=== PATIENT | male | born 1945 | race Caucasian/White ===

== ENCOUNTER → 2017-05-24 | Outpatient (CLI) | payer OTHER ==
[~2017-05-24] MED LIST: BENICAR40 MG PO; COZAAR 25 MG TA25 MG PO; HYDROCHLOROTHIA25 M2 PO; NEXIUM40 MG PO; PREDNISONE 10 M10 MG PO; SIMVASTATIN40 MG PO; STIOLTO RESPIMAT4 GM INH; TENORMIN25 MG PO; TRAZODONE HCL50 MG PO; WELCHOL 625 MG625 M1 PO; XARELTO15 MG PO; XARELTO20 MG PO
== END ==
LOC: M.RAD 11:00
DX: J98.11 Atelectasis (principal); R06.02 Shortness of breath

== ENCOUNTER → 2017-09-07 | Outpatient (CLI) | payer OTHER ==
--- NOTE | 2017-09-13 07:49 | PF ---
[address] [address] PULMONARY FUNCTION REPORT Name: MAJORRAJINDER Natalia Room: [facility] BHAVESH Garcia#: [id number] Admission: 09/07/17 Attend Phys: Huy Cheek, Discharge: Date of : 49 Report #: [id number] THIS REPORT FOR: //name// CC: Huy BALLARD physician/PCP DATE OF SERVICE: 09/07/2017 PFT done on 09/07/2017. REQUESTING PHYSICIAN: Dr. Cheek. A spirometry was done. FEV1 of 2.93, which was 93% of predicted. FVC of 4.77. FEV1/FVC ratio 62%. Mid flows were moderately decreased at 51% of predicted. After inhaled bronchodilator, there was 45% improvement seen at the level of the smaller airways. Lung volumes by plethysmography reveal a normal TLC. Other volumes were normal as well. Diffusion capacity is normal. IMPRESSION: The study reveals evidence of a mild obstructive process. Seen primarily at the level of the small airways. There was improvement in the mid flows following inhaled bronchodilator. <ELECTRONICALLY SIGNED> By: Kala Caruso MD 09/13/17 0749 0907 1442Kala Caruso MD /nt
== END ==
LOC: M.PUL 09:30
DX: J44.9 Chronic obstructive pulmonary disease, unspecified (principal)

== ENCOUNTER 2017-10-29 13:54 | Inpatient (IN) | payer OTHER ==
[~2017-10-29] VITALS: Ht 175.3 cm; Wt 97.5 kg
[2017-10-29 14:04] VITALS: BP 125/69
[2017-10-29 14:41] LABS: ABSOLUTE LYMPHOCYTES 0.8 thou/uL (0.8-5.3); ABSOLUTE MONOCYTES 0.3 thou/uL (0.0-1.2); ABSOLUTE NEUTROPHILS 5.6 thou/uL (1.6-8.1); BASOPHILS 0.3 %; EOSINOPHILS 0.1 %; HEMOGLOBIN 15.7 gm/dL (14.0-18.0); LYMPHOCYTES 11.3 %; MCH 32.4 pg (26.0-34.0); MCHC 34.8 g/dL (28.0-37.0); MCV 93.3 fL (80.0-100.0); MONOCYTES 4.7 %; MPV 8.8 fl. (7.2-11.1); NUCLEATED RBCS 0 /100WBC; PLATELET COUNT* 157 thou/uL (150-400); POLYS 83.6 %; RBC 4.83 mil/uL (4.50-6.00); RDW-CV 13.7 % (10.5-14.5); WBC 6.7 thou/uL (4.0-11.0)
[2017-10-29 14:52] LABS: APTT 26.3 Seconds (25.0-31.3); INR 1.1; PROTIME 10.6 Seconds (9.20-11.50)
[2017-10-29 14:59] LABS: ANION GAP 13 mmol/L (7-16); BUN 34 mg/dL (7-18); CALCIUM 9.2 mg/dL (8.5-10.1); CHLORIDE 101 mmol/L (98-107); CO2 20 mmol/L (21-32); CREATININE 1.2 mg/dL (0.6-1.3); GLUCOSE 184 mg/dL (70-99); POTASSIUM 3.9 mmol/L (3.5-5.1); SODIUM 134 mmol/L (136-145)
[2017-10-29 15:10] LABS: ALBUMIN 3.7 g/dL (3.4-5.0); ALKALINE PHOSPHATASE 79 U/L (46-116); MAGNESIUM 1.8 mg/dL (1.8-2.4); NT-PRO BRAIN NAT PEPTIDE 4192 pg/mL (<300); SGOT 36 U/L (15-37); SGPT 86 U/L (30-65); TOTAL BILIRUBIN 0.6 mg/dL (<0.1-1.0); TOTAL PROTEIN 6.9 g/dL (6.4-8.2); TROPONIN-I LEVEL <0.06 ng/mL (<0.06)
[2017-10-29] MEDS ORDERED: PREDNISONE 10 M10 MG PO (15:12)
[2017-10-29] MEDS ORDERED: SIMVASTATIN40 MG PO (15:13)
[2017-10-29] MEDS ORDERED: TENORMIN25 MG PO (15:13)
[2017-10-29] MEDS ORDERED: HYDROCHLOROTHIA25 M2 PO (15:13)
[2017-10-29] MEDS ORDERED: NEXIUM40 MG PO (15:13)
[2017-10-29] MEDS ORDERED: COZAAR 25 MG TA25 MG PO (15:14)
[2017-10-29] MEDS ORDERED: TRAZODONE HCL50 MG PO (15:14)
[2017-10-29] MEDS ORDERED: STIOLTO RESPIMAT4 GM INH (15:14)
[2017-10-29 16:05] VITALS: BP 115/73
--- NOTE | 2017-10-29 16:16 | NUR ---
ECHOCARDIOLOGY ARRIVED TO THE EMERGENCY DEPARTMENT BEFORE MOVING THE PATIENT TO HIS ROOM #233. PT WILL BE MOVED TO HIS ROOM AFTER THE ECHO IS COMPLETED.
--- NOTE | 2017-10-29 16:40 | NUR ---
UPDATED D/C VITALS: HR:71 BP:92/70 RR:12 PAIN: 0/10 02 SAT:99 ON 2 LITERS NC
[2017-10-29 17:03] VITALS: BP 112/74
[2017-10-29] MEDS ORDERED: BENICAR40 MG PO (17:32)
[2017-10-29] MEDS ORDERED: WELCHOL 625 MG625 M1 PO (17:34)
--- NOTE | 2017-10-29 17:54 | NUR ---
RECEIVED REOPORT AND ASSUMED CARE AT 1650. PT TRANSFERED FROM ER TO RM 233. VSS. CARDIAC MONITORING IN PLACE. PT ORIENTATED TO ROOM, CALL LIGHT. BED IN LOWEST POSITION, CALL LIGHT WITHIN REACH. PT UP AD AUNDREA, ON 2L NC. ASSESSMENT COMPLETED CHARTED. WILL CONTINUE TO MONITOR
--- NOTE | 2017-10-29 18:14 | NUR ---
RECIEVED COMMUNICATION FROM [employer] TECH THAT PT WAS POSITIVE FOR BLOOD CLOTS TO BLE POPITEAL- MESSAGE SENT TO - PT PATRICK ON XARELTO BID- ALL NEEDS MET AT THIS TIME-EARNEST
[2017-10-29 20:30] VITALS: BP 103/71
[2017-10-30] VITALS: BP 104/76
[2017-10-30 04:00] VITALS: BP 92/66
[2017-10-30 08:12] VITALS: BP 123/78
[2017-10-30 08:51] LABS: HEMATOCRIT 45.7 % (42.0-52.0); HEMOGLOBIN 15.5 gm/dL (14.0-18.0)
[2017-10-30 11:51] VITALS: BP 100/68
--- NOTE | 2017-10-30 12:38 | 2DMMODE ---
[place] [address] 2 D/M-MODE ECHOCARDIOGRAM Name: RAJINDER GONSALVES Room: [address] IN [facility]#: [id number] Admission: 10/29/17 Attend Phys: Tee Wesley, Discharge: Date of : 49 Date of Service: 10/30/17 1238 Report #: [id number] THIS REPORT FOR: //name// APPROVED REPORT Study performed: 10/29/2017 16:15:32 EXAM: Comprehensive 2D, Doppler, and color-flow Echocardiogram Patient Location: In-Patient Room #: ER Status: routine BSA: 2.09 HR: 66 bpm BP: 105/74 mmHg Rhythm: NSR Other Information Study Quality: Good Indications Dyspnea 2D Dimensions LVEF(%): 68.63 (>50%) IVSd: 9.53 (7-11mm) LVOT Diam: 20.39 (18-24mm) LVDd: 39.78 mm PWd: 9.94 (7-11mm) Ascending Ao: 38.91 (22-36mm) LVDs: 24.70 (25-40mm) Aortic Root: 38.17 mm Bridges's LVEF: 68.63 % Volumes Left Atrial Volume (Systole) LA ESV Index: 15.90 mL/m2 Aortic Valve AoV Peak Chacorta.: 1.08 m/s AO Peak Gr.: 4.66 mmHg LVOT Max P.30 mmHg AO Mean Gr.: 2.67 mmHg LVOT Mean P.97 mmHg LVOT Max V: 0.76 m/s AO V2 VTI: 15.89 cm LVOT Mean V: 0.45 m/s RAMOS (VTI): 2.96 cm2 LVOT V1 VTI: 14.38 cm Mitral Valve E/A Ratio: 0.67 [place] [address] 2 D/M-MODE ECHOCARDIOGRAM Name: RAJINDER GONSALVES Room: [address] IN [facility].#: [id number] Admission: 10/29/17 Attend Phys: Tee Wesley, Discharge: Date of : 49 Date of Service: 10/30/17 1238 Report #: [id number] MV Decel. Time: 263.14 ms MV E Max Chacorta.: 0.33 m/s MV PHT: 76.31 ms MVA (PHT): 2.88 cm2 TDI E/Lateral E': 3.67 E/Medial E': 8.25 Medial E' Chacorta.: 0.04 m/s Lateral E' Chacorta.: 0.09 m/s Tricuspid Valve TR Peak Gr.: 72.36 mmHg RVSP: 87.00 mmHg Left Ventricle The left ventricle is normal size. Flattened septum consistent with right ventricular volume and pressure overload.Other segments are normal. There is normal left ventricular wall thickness. Left ventricular systolic function is normal. The left ventricular ejection fraction is within the normal range. LVEF is 55%. Grade I - abnormal relaxation pattern. Right Ventricle Right ventricle is dilated. Right ventricular systolic function is severely reduced. Atria The left atrium size is normal. Right atrium is dilated. Aortic Valve The aortic valve is normal in structure. No aortic regurgitation is present. There is no aortic valvular stenosis. Mitral Valve The mitral valve is normal in structure. There is no mitral valve regurgitation noted. No evidence of mitral valve stenosis. Tricuspid Valve The tricuspid valve is normal in structure. Mild tricuspid regurgitation. The RVSP is ____87___ mmHg. Pulmonic Valve The pulmonary valve is normal in structure. Trace pulmonic regurgitation. Great Vessels The aortic root is normal in size. IVC [place] [address] 2 D/M-MODE ECHOCARDIOGRAM Name: RAJINDER GONSALVES Room: [address] IN [facility]#: [id number] Admission: 10/29/17 Attend Phys: Tee Wesley, Discharge: Date of : 49 Date of Service: 10/30/17 1238 Report #: [id number] <50% with inspiration. Pericardium There is no pericardial effusion. <Conclusion> The left ventricle is normal size. LVEF is 55%. Flattened septum consistent with right ventricular volume and pressure overload.Other segments are normal. Right ventricle is dilated. Right ventricular systolic function is severely reduced. Right atrium is dilated. No aortic regurgitation is present. There is no aortic valvular stenosis. No evidence of mitral valve stenosis. There is no mitral valve regurgitation noted. Mild tricuspid regurgitation. The RVSP is ____87___ mmHg. <ELECTRONICALLY SIGNED> By: Andrew Martinez MD, FACC 10/30/17 1238 1238 1238 Andrew Martinez MD, FACC /INF
--- NOTE | 2017-10-30 12:49 | EKG ---
[place] [address] ELECTROCARDIOGRAM REPORT Name: RAJINDER GONSALVES Room: [place] [address] ADM IN [facility]#: [id number] Admission: 10/29/17 Attend Phys: Tee Wesley MD Discharge: Date of : 49 Report #: [id number] THIS REPORT FOR: //name// 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 REED : 1945 Requested By: Elliot Walters Order Number: [id number] MD: Andrew Martinez Measurements Intervals [place] Rate: 64 P: 34 ID: 211 QRS: 176 QRSD: 118 T: -28 QT: 506 QTc: 522 Interpretive Statements Sinus rhythm Nonspecific intraventricular conduction delay Abnormal T, consider ischemia, lateral leads Baseline wander in lead(s) V4 No previous ECG available for comparison Electronically Signed On 10-30-2017 12:49:03 CDT by Andrew Martinez [email or web address] <ELECTRONICALLY SIGNED> By: Andrew Martinez MD, [facility] 10/30/17 1249 1421 1421 Andrew Martinez MD, [facility] /EPI
--- NOTE | 2017-10-30 16:06 | NUR ---
CALLED PT.'S PHARMACY-[facility] IN [facility]-[phone]. COPAY FOR XARELTO 15MG PO BID #60 IS $135.99. SPOKE WITH PT.ABOUT THIS AND ALSO GAVE COUPON FOR ONE 30 DAY SUPPLY AT NO COST THROUGH [employer] ACCOUNT MANAGER. HE SAID THE DIOCESE GIVE THEM A LITTLE EXTRA TOWARDS THEIR DRUG PLAN THEY CAN USE IF NEEDED. HE THINKS IT WILL BE OK. PER PHARMACIST, PT.CAN GO ONLINE AND GET COUPON FOR XARELTO. INFORMED HIM OF THIS. HE IS NORMALLY INDEPENDENT AND ACTIVE. 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 JUST RETIRED A MONTH AGO. PTS IS COERY FARAH DO.
[2017-10-30 16:14] VITALS: BP 106/75
--- NOTE | 2017-10-30 18:20 | NUR ---
ASSUMED CARE OF PT AT 0715. PT CONTINUES TO BE A&O X4 CALM AND COOPERATIVE. HE HAS HAD NO C/O PAIN OR DISCOMFORT. PT VSS ON ROOM AIR AND HE HAS BEEN TRACING SR ON THE MONITOR. PT UP AD AUNDREA AND VOIDING VIA THE TOILET. PT HAS A GOOD APPETITE AND HAS ATRE GREATER THAN 90% OF ALL MEALS TODAY. MEDICATIONS ADMINISTERED PER MAR, AND HOURLY ROUNDING COMPLETED FOR COMFORT AND SAFTEY.
[2017-10-30 20:00] VITALS: BP 106/63
[2017-10-31 00:36] VITALS: BP 90/60
--- NOTE | 2017-10-31 03:07 | NUR ---
ASSUMED PT CARE AT 19:15 REPORT RECEIVED FROM NURSE PT IS ALERT, AWAKE, ORIENTED X 4. NO COMPLAINT OF PAIN. VITAL SIGNS WITHIN NORMAL LIMIT.ASSESSMEMT PERFORMED AT BEDSIDE. REFER TO CHART. SINUS RYTHM ON THE MONITOR. NO MED SCHEDULED. PT WAS SITTING AT BEDSIDE IN RECLYNER CHAIR. NO COMPLAIN OF HEADACHE. CURRENTLY SLEEPING IN BED. WILL CONTINUE TO MONITOR.
--- NOTE | 2017-10-31 03:19 | NUR ---
ASSUMED PT CARE REPORT REECEIVED FROM NURSE. PT IS ALERT AWAKE ORIENTED X4 SITTING IN THE CHAIR NEXT TO BED. HIS VITALS ARE OK. SINUS RYHTM WITH 1ST DEGRRE AV BLOCK ON THE MONITOR. OXYGEN SATURTAION IS 95% ON RA. HIS O2 SAT DROPPED TO TH E80 AT AROUND MIDNIGHT, O2 NC READJUSTED. HE IS CURRENTLY ON 2 L OF O2 NO COMPLAINT OF PAIN. HIS MED WERE GIVEN ORDERED. CURRENTLY SLEEPING IN BED. WILL CONTINUE TO MONITOR.
[2017-10-31 04:01] VITALS: BP 97/67
[2017-10-31 08:00] VITALS: BP 117/76
[2017-10-31] MEDS ORDERED: XARELTO20 MG PO (08:26)
[2017-10-31] MEDS ORDERED: XARELTO15 MG PO (08:27)
[2017-10-31 11:00] VITALS: BP 117/76
--- NOTE | 2017-10-31 13:44 | NUR ---
ASSUMED CARE OF PT AT 0730. PT REMAINED A&O X4 CALMA ND COOPERATIVE. NO C/O PAIN OR DISTRESS. PT EAGAR TO DISCHARGE HOME. PT VSS ON ROOM AIR AND TRACING SR ON THE MONITOR. PT WAS DISCHARGED TO HOME WITH PRESCRIOTPINS AND ALL PERSONAL ITEMS. PT PROVIDED WITH WRITTEN INFORMATION ON NEW MEDICATIONS. PT VERBALIZED UNDERSTANDING OF DC INSTRUCTIONS THAT IN CLUDED MEDICATION MANAGEMENT AND F/U CARE.
--- NOTE | 2017-11-01 10:52 | CON ---
[address] [address] CONSULTATION Name: RAJINDER GONSALVES Room: [address] IN [facility]#: [id number] Admission: 10/29/17 Attend Phys: Tee Wesley MD Discharge: 10/31/17 Date of : 49 Report #: [id number] THIS REPORT FOR: //name// CC: Tee FARAH Physician staff REASON FOR CONSULTATION: Pulmonary embolus. HISTORY OF PRESENT ILLNESS: The patient is a 72-year-old male patient with history of dyspnea. He had been seen in our office 2 times, the last time was 10/28/2017. He has history of smoking, quit in 1998 after a [id number] history of smoking. His PFTs at our office showed moderate obstructive defect. He has been on Stiolto since then. He had increasing shortness of breath for a year now, this has been progressive. At one point, he required prednisone taper. Dr. Cheek ordered CT of the chest for him that was done at [facility] on 10/29/2017 that demonstrated multiple bilateral pulmonary emboli with areas of infiltrate that likely suggest pulmonary infarct. He was sent to the ER and was admitted and started on anticoagulation. In the past, he was unable to tolerate his CPAP. He has history of obstructive sleep apnea, on CPAP therapy, however, and his intolerance to CPAP was recent due to increasing shortness of breath. REVIEW OF SYSTEMS: Negative for lower extremity pain, but he had some swelling of both lower extremities on and off over the course of one year. He had no PNDs, no orthopnea, no headache, no blurring of vision. FAMILY HISTORY: There is no history of thromboembolic disease in the family, but positive for Alzheimer's and CVA. PAST MEDICAL HISTORY: COPD; obstructive sleep apnea, on CPAP; history of osteoarthritis; reflux disease; hyperlipidemia, previous history of alcohol abuse. PAST SURGICAL HISTORY: Left elbow surgery, hernia repair, colonoscopy. SOCIAL HISTORY: Ex-smoker, quit long time ago after a 30-year history of smoking, currently does not drink alcohol. Does not abuse drugs. HOME MEDICATIONS: He is on CPAP. He is on atenolol. He is on Combivent. He is on Stiolto, Benicar PPIs, He was at one point on a prednisone taper. ALLERGIES: TORADOL. PHYSICAL EXAMINATION: VITAL SIGNS: When I saw him, he was on room air with saturation more than 90%, blood pressure 123/78, pulse rate of 69, temperature 36.8. HEAD: Normocephalic[place] [address] CONSULTATION Name: RAJINDER GONSALVES Room: [address] IN [facility]#: [id number] Admission: 10/29/17 Attend Phys: Tee Wesley MD Discharge: 10/31/17 Date of : 49 Report #: [id number] EYES: Pupils reactive to light. Extraocular movement intact, not pale. No jaundice. EARS: External ear looks healthy and normal. ORAL CAVITY: Moist mucous membrane. Mallampati of 2-3. NECK: Supple. No palpable lymph node. No palpable thyroid. Trachea central. CHEST: Actually clear to auscultation. No wheezes, no crackles. No tenderness. HEART: S1, S2. No murmur, no gallop. ABDOMEN: Benign, soft, lax, nontender, positive bowel sounds. No masses felt, no rebound, no rigidity. EXTREMITIES: Lower extremity: No edema, no calf tenderness. SKIN: Normal for age and race, no rash. PSYCHIATRIC: Mood and affect appropriate. Good insight and judgment. NEUROLOGIC: Moving 4 extremities spontaneously. No focal weakness. LYMPHATICS: No palpable lymph nodes. LABORATORY DATA: His white blood count 6.7, with hemoglobin 15.7 and platelets of 157. His creatinine is 1.2, with a sodium of 134, potassium 3.9. INR of 1.1. He had a venous Doppler ultrasound during this hospitalization demonstrated thrombus within the right popliteal vein and left popliteal vein and left peroneal vein. His CT of the chest at [facility] demonstrated bilateral multiple PEs. He had a chest x-ray during this hospitalization showed area of infiltrate/hilar mass on the right side. However, this opacity was seen along the minor fissure on the right lung on the CT scan of the chest. IMPRESSION: 1. Acute hypoxemic respiratory failure. 2. Pulmonary embolus, acute. 3. Acute deep venous thrombosis. 4. Chronic obstructive pulmonary disease. The patient currently is on anticoagulation. Continue to monitor his oxygen and wean his oxygen down. I would recommend anticoagulation for at least 6 months. He needs repeat imaging of the chest with a CT in 3-6 months from now to ensure resolution of the clots at the same time that also would follow the opacity seen in his lung. Continue current treatment for his COPD. Echo is pending. We will follow along with you. Thank you for the consult. <ELECTRONICALLY SIGNED> By: Florinda Tomlin MD 11/01/17 1052 0905 1223Ddeepa Tomlin MD /nt
== END 2017-10-31 11:15 | disposition home or self-care (01) | DRG 175 ==
LOC: M.ERS 13:54 → M.2W 14:48 → M.TBA-ER 14:48 → M.2W 17:03
PROVIDERS: Emergency Medicine Emergency Medical Services; ADMIT Internal Medicine
DX: I26.99 Other pulmonary embolism without acute cor pulmonale (principal); J96.01 Acute respiratory failure with hypoxia; I82.403 Acute embolism and thrombosis of unspecified deep veins of lower extremity, bilateral; D68.59 Other primary thrombophilia; J44.9 Chronic obstructive pulmonary disease, unspecified; G47.33 Obstructive sleep apnea (adult) (pediatric); M19.90 Unspecified osteoarthritis, unspecified site; K21.9 Gastro-esophageal reflux disease without esophagitis; E78.5 Hyperlipidemia, unspecified; I27.20 Pulmonary hypertension, unspecified; I50.810 Right heart failure, unspecified; I10 Essential (primary) hypertension; Z88.6 Allergy status to analgesic agent; Z90.49 Acquired absence of other specified parts of digestive tract; Z79.01 Long term (current) use of anticoagulants; Z87.891 Personal history of nicotine dependence; Z79.1 Long term (current) use of non-steroidal anti-inflammatories (NSAID); Z79.899 Other long term (current) drug therapy; Z82.49 Family history of ischemic heart disease and other diseases of the circulatory system; Z84.89 Family history of other specified conditions; Z82.3 Family history of stroke

== ENCOUNTER 2017-11-03 16:11 | Emergency (ER) | payer OTHER ==
[~2017-11-03] VITALS: Ht 175.3 cm; Wt 93.0 kg
[2017-11-03 16:50] LABS: ABSOLUTE LYMPHOCYTES 1.1 thou/uL (0.8-5.3); ABSOLUTE MONOCYTES 0.5 thou/uL (0.0-1.2); BASOPHILS 0.3 %; EOSINOPHILS 0.5 %; HEMOGLOBIN 15.1 gm/dL (14.0-18.0); LYMPHOCYTES 14.3 %; MCH 32.1 pg (26.0-34.0); MCHC 34.2 g/dL (28.0-37.0); MCV 93.8 fL (80.0-100.0); MONOCYTES 6.9 %; MPV 8.6 fl. (7.2-11.1); NUCLEATED RBCS 0 /100WBC; PLATELET COUNT* 175 thou/uL (150-400); RDW-CV 13.8 % (10.5-14.5); WBC 7.7 thou/uL (4.0-11.0)
[2017-11-03 16:57] LABS: ANION GAP 8 mmol/L (7-16); BUN 29 mg/dL (7-18); CALCIUM 9.5 mg/dL (8.5-10.1); CHLORIDE 103 mmol/L (98-107); CO2 28 mmol/L (21-32); CREATININE 1.1 mg/dL (0.6-1.3); GLUCOSE 124 mg/dL (70-99); POTASSIUM 4.9 mmol/L (3.5-5.1); SODIUM 139 mmol/L (136-145)
[2017-11-03 17:08] LABS: ALBUMIN 3.7 g/dL (3.4-5.0); ALKALINE PHOSPHATASE 71 U/L (46-116); NT-PRO BRAIN NAT PEPTIDE 1332 pg/mL (<300); SGOT 23 U/L (15-37); SGPT 69 U/L (30-65); TOTAL BILIRUBIN 0.7 mg/dL (<0.1-1.0); TOTAL PROTEIN 6.9 g/dL (6.4-8.2); TROPONIN-I LEVEL <0.06 ng/mL (<0.06)
[2017-11-03 18:09] VITALS: BP 138/88
--- NOTE | 2017-11-04 11:32 | EKG ---
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1945 Requested By: Elliot Walters Order Number: [id number] MD: Andrew Martinez Measurements Intervals [place] Rate: 56 P: 36 GA: 222 QRS: 171 QRSD: 106 T: -11 QT: 523 QTc: 505 Interpretive Statements Sinus rhythm Prolonged GA interval Probable RVH w/ secondary repol abnormality Prolonged QT interval Compared to ECG 10/29/2017 14:21:01 First degree AV block now present Prolonged QT interval now present Intraventricular conduction delay no longer present T-wave abnormality no longer present Possible ischemia no longer present Electronically Signed On 11-04-2017 11:31:50 CDT by Andrew Martinez [email or web address] <ELECTRONICALLY SIGNED> By: Andrew Martinez MD, FACC 11/04/17 1131 1654 1654 Andrew Martinez MD, FAC /EPI
== END 2017-11-03 18:09 | disposition home or self-care (01) ==
LOC: M.ERS 16:11
PROVIDERS: Emergency Medicine Emergency Medical Services
DX: R60.0 Localized edema (principal); Z87.891 Personal history of nicotine dependence; Z88.8 Allergy status to other drugs, medicaments and biological substances